=== PATIENT | female | born 1950 | race Caucasian/White ===

== ENCOUNTER 2019-11-24 18:34 | Emergency (ER) | payer MEDICARE, OTHER ==
--- NOTE | 2019-11-24 19:29 | EDM.PDOC ---
ED HPI GENERAL MEDICAL PROBLEM - General Chief Complaint: Cardiovascular Problem Stated Complaint: HIGH BP Time Seen by Provider: 11/24/19 19:19 Source of Information: Reports: Patient History Limitations: Reports: No Limitations - History of Present Illness INITIAL COMMENTS - FREE TEXT/NARRATIVE: 68-year-old female attends the ED due to elevated systolic blood pressures for the last several days. Showed significant systolic hypertension in clinic a week ago and was placed on 3 days of amlodipine 5 mg dosage. She states this worked very well dropping her blood pressure on the top down into the 140s. Since then she is getting numbers like [id number] and 218 when she presented to the ED today. Since it did come down to 191 systolic. Her diastolics have always remained below 85. For she appears to have primary systolic hypertension. She states she gets dizzy lightheaded and she can fill a pressure in the back of her head when her blood pressures too high. Nausea vomiting no change in visual acuity. Onset: Gradual Onset Date: 11/24/19 (Is been having gradually increasing systolic blood pressures for the last month or more. Improved with a 3 day course of amlodipine 5 mg daily but it went right back up after she was down medication.) Duration: Week(s):, Constant Location: Reports: Other (Constant systolic hypertension.) Quality: Reports: Other (Aware of some lightheadedness dizziness and pressure in the back of her head.) Severity: Moderate Improves with: Reports: Other (Her primary care provider gave her 3 day supply of amlodipine ) Worsens with: Reports: None (milligram strength which dropped her systolic blood pressure very well. Underwent right back up after finishing the medication.) Context: Denies: Activity, Exercise, Lifting, Sick Contact, Trauma Associated Symptoms: Reports: Headaches, Other. 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: Reports: Other (see below) - Related Data Allergies Allergy/AdvReac Type Severity Reaction Status Date / Time No Known Allergies Allergy Verified 11/24/19 18:47 Home Meds: Home Meds Estriol Micronized 1 applic TOP DAILY 11/24/19 [History] Lisinopril [Zestril] 10 mg PO DAILY #30 tablet 11/24/19 [Rx] Lisinopril/Hydrochlorothiazide [Lisinopril-HCTZ 10-12.5 MG] 1 tab PO DAILY 11/24 [History] Metoprolol Succinate [Toprol XL 50mg] 50 mg PO DAILY 11/24/19 [History] Progesterone, Micronized [Progesterone] 100 mg PO BEDTIME 11/24/19 [History] amLODIPine Besylate [Norvasc] 5 mg PO DAILY #30 tablet 11/24/19 [Rx] Past Medical History HEENT History: Reports: Impaired Vision Cardiovascular History: Reports: High Cholesterol, Hypertension Respiratory History: Reports: None Gastrointestinal History: Reports: None RN CLINICAL RESEARCH History: Reports: None Musculoskeletal History: Reports: None Neurological History: Reports: None Psychiatric History: Reports: None Endocrine/Metabolic History: Reports: None Hematologic History: Reports: None Immunologic History: Reports: None Oncologic (Cancer) History: Reports: None Dermatologic History: Reports: None - Infectious Disease History Infectious Disease History: Reports: None - Past Surgical History Female Surgical History: Reports: Tubal Ligation Social & Family History - Tobacco Use Smoking Status *Q: Never Smoker - Caffeine Use Caffeine Use: Reports: Coffee - Recreational Drug Use Recreational Drug Use: No - Living Situation & Occupation Living situation: Reports: Occupation: Retired ED ROS GENERAL - Review of Systems Review Of Systems: See Below Constitutional: Denies: Fever, Chills, Malaise, Weakness, Fatigue, Decreased Appetite, Weight Loss HEENT: Reports: Glasses Respiratory: Reports: No Symptoms Cardiovascular: Reports: Blood Pressure Problem, Lightheadedness. Denies: Claudication, Dyspnea on Exertion, Edema (Associate with elevated systolic hypertension.), Orthopnea, Palpitations Endocrine: Reports: Fatigue GI/Abdominal: Reports: No Symptoms : Reports: No Symptoms Musculoskeletal: Reports: Other Skin: Reports: No Symptoms (No joint pain knees hips low back at times) Neurological: Reports: Dizziness (Lightheaded and dizzy at times and this was when she appreciates her blood pressure to be elevated on the systolic side.) Psychiatric: Reports: No Symptoms Hematologic/Lymphatic: Reports: No Symptoms Immunologic: Reports: No Symptoms ED EXAM, GENERAL - Physical Exam Exam: See Below Exam Limited By: No Limitations General Appearance: Alert, WD/WN, Anxious, Other (Highly anxious. Should blood pressure was 218/77. Temperature is 37.3 with a pulse of 79. Respiratory is 16. Pulse ox 98% on room air) Eye Exam: Bilateral Eye: Normal Fundi (Slight AV nicking appreciated in both fundi.), Normal Inspection Throat/Mouth: Normal Inspection, Normal Lips, Normal Oropharynx Head: Atraumatic, Normocephalic Neck: Normal Inspection, Supple, Non-Tender, Full Range of Motion. No: Carotid Bruit, Lymphadenopathy (L), Lymphadenopathy (R), Thyromegaly Respiratory/Chest: No Respiratory Distress, Lungs Clear, Normal Breath Sounds, No Accessory Muscle Use, Chest Non-Tender Cardiovascular: Normal Peripheral Pulses, Regular Rate, Rhythm, No Edema, No Gallop, No Murmur, No Rub, Systolic Murmur (A faint grade 1 or less pansystolic ejection murmur best heard left sternal bowel border. I suspect there is an early diastolic murmur as well suggesting atrial stenosis and mitral insufficiency.) Peripheral Pulses: 3+: Posterior Tibial (L), Posterior Tibial (R), Dorsalis Pedis (L), Dorsalis Pedis (R) GI/Abdominal: Normal Bowel Sounds, Soft, Non-Tender, No Organomegaly, No Mass, Pelvis Stable Back Exam: Normal Inspection, Full Range of Motion. No: CVA Tenderness (L), CVA Tenderness (R) Extremities: Normal Inspection, Normal Range of Motion, Non-Tender, No Pedal Edema, Normal Capillary Refill Neurological: Alert, Oriented, CN II-XII Intact, Normal Cognition, Normal Gait Psychiatric: Normal Affect, Anxious Skin Exam: Warm, Dry, Intact (Mildly anxious.), Normal Color, No Rash EKG INTERPRETATION EKG Date: 11/24/19 Time: 19:00 Rhythm: NSR Rate (Beats/Min): 68 Ruffin: LAD-Left Ruffin Deviation (-14) P-Wave: Enlarged (Consider mild left atrial hypertrophy) QRS: Other (Q waves V1 and RSR prime-like wave in V2 normal variant. Underlying criteria for left ventricular hypertrophy.) ST-T: Other (T-wave flattening in aVL.) QT: Normal EKG Interpretation Comments: Abnormal ECG Course - Vital Signs Last Recorded V/S: Last Vital Signs Temp 37.3 C 11/24/19 18:43 Pulse 75 11/24/19 19:56 Resp 16 11/24/19 18:43 BP 182/68 H 11/24/19 19:56 Pulse Ox 100 11/24/19 19:56 - Orders/Labs/Meds Orders: Active Orders 24 hr Category Date Time Status EKG Documentation Completion [RC] STAT Care 11/24/19 19:09 Active - Radiology Interpretation Free Text/Narrative:: 68-year-old female attends the ED due to uncontrolled systolic hypertension. Her systolic blood pressures been creeping up on over the last couple of months and particularly bad the last month. Riding a 3 day trial of amlodipine [address] systolic pressure nicely into the 140s. She's never had an elevated diastolic pressure always remained under 80. She presents due to elevated systolic blood pressure of 218 and 208 at home tonight. She has lightheadedness and a pressure in the back of her head which she will not call a headache. Feels slightly dizzy and off-balance. No vomiting no change in visual acuity. The pressure settled at 191/77 in the ED over time. ECG suggests mild left atrial hypertrophy and borderline criteria for left ventricular hypertrophy pattern. I think I can hear a very early systolic ejection murmur suggestive of atrial stenosis as well. I would suggest an echocardiogram be done if one has not been done within the last 2 years. She made to place her back on amlodipine 5 mg once daily as it worked well for blood pressure control she will take this at nighttime to try and provide 24-hour blood pressure control and continue to use her metoprolol and lisinopril 10 mg once daily in the morning. I suggested she drop the chlorothiazide component as it is very minimally useful in controlling hypertension and carries a good deal of side effects. Prescription written for lisinopril 10 mg once daily only in the morning. Follow-up with her primary care provider within the next couple of weeks. Departure - Departure Time of Disposition: 19:37 Disposition: Home, Self-Care 01 Condition: Fair Clinical Impression: Systolic essential hypertension Prescriptions: amLODIPine Besylate [Norvasc] 5 mg PO DAILY #30 tablet Lisinopril [Zestril] 10 mg PO DAILY #30 tablet Instructions: Hypertension, [id number] Referrals: Jasmyne Freire NP [Primary Care Provider] - Forms: ED Department Discharge Additional Instructions: Evaluation the emergency room today in regards to primary systolic hypertension which means the top number of your blood pressure remains markedly elevated as compared to the diastolic or lower number. Since presentation your blood pressure was 218 on the upper number and you got 208 at home. He did come down to 191 on the top number while in the ED but remains too high. Recent short trial of Norvasc 5 mg once daily by Dr. sp soto down into the 140s which is where we would like it to be. Suggesting a change in blood pressure treatment. Suggest Norvasc 5 mg tablet every night at bedtime to provide 24-hour control blood pressure. Continue lisinopril 10 mg once daily in the morning and discontinue the lisinopril with hydrochlorothiazide i.e. remove the hydrochlorothiazide component. Integument Toprol as previously prescribed once daily in the morning. Check blood pressures on a random basis usually first thing in the morning it tends to be the highest of the day taking it randomly throughout the day helps the doctor decide if blood pressure is well controlled. Follow-up with personal care physician in early December as planned. Sepsis Event Note - Evaluation Sepsis Screening Result: No Definite Risk - Focused Exam Vital Signs: Vital Signs Temp Pulse Resp BP Pulse Ox 11/24/19 19:56 75 182/68 H 100 11/24/19 18:43 37.3 C 79 16 218/77 H 98 Date Exam was Performed: 11/24/19 Time Exam was Performed: 21:54 - My Orders Last 24 Hours: My Active Orders 11/24/19 19:09 EKG Documentation Completion [RC] STAT - Assessment/Plan Last 24 Hours: My Active Orders 11/24/19 19:09 EKG Documentation Completion [RC] STAT
== END 2019-11-24 19:56 | disposition home or self-care (01) ==
LOC: JD.ED 18:34
DX: I10 Essential (primary) hypertension (principal); Z79.899 Other long term (current) drug therapy; Z98.51 Tubal ligation status
CPT/HCPCS: 93005; 93010; 99283-25; 99284